=== PATIENT | male | born 1975 | race Caucasian/White ===

== ENCOUNTER → 2021-09-12 | Outpatient (CLI) | payer OTHER ==
[~2021-09-12] MED LIST: KEPPRA500 MG PO
== END ==
LOC: RAD 14:06
DX: M47.22 Other spondylosis with radiculopathy, cervical region (principal)
CPT/HCPCS: 72040

== ENCOUNTER → 2021-12-04 | Outpatient (CLI) | payer OTHER | LOC: MRI 12-01 08:30 | DX: M50.122 Cervical disc disorder at C5-C6 level with radiculopathy (principal); M48.02 Spinal stenosis, cervical region | CPT/HCPCS: 72156; A9577 ==